=== PATIENT | male | born 1980 | race Caucasian/White ===

== ENCOUNTER 2016-10-28 12:24 | Emergency (ER) | payer BC ==
[~2016-10-28] VITALS: Ht 177.8 cm; Wt 81.3 kg
[2016-10-28 14:40] VITALS: BP 115/65
== END 2016-10-28 14:40 | disposition home or self-care (01) ==
LOC: ED 12:24
DX: K22.2 Esophageal obstruction (principal); R13.10 Dysphagia, unspecified
CPT/HCPCS: J1610